=== PATIENT | female | born 1995 | race Caucasian/White ===

== ENCOUNTER 2018-10-14 15:58 | Observation (INO) ==
[2018-10-14 16:44] LABS: Hematocrit [HCT] 38.3 % (37.0-47.0); Hemoglobin [HGB] 13.4 g/dL (12.0-16.0); MEAN CORPUSCULAR VOLUME 91.2 FL (81-99); MEAN PLATELET VOLUME 11.1 FL (7.4-12.2); RED BLOOD COUNT 4.2 10^6/uL (4.20-5.40)
[2018-10-14] MEDS ORDERED: BETAMET ACET/BETAMET NA PH 6 MG/1 ML - 5 ML IM SCH (16:45)
[2018-10-14 16:55] LABS: BLOOD UREA NITROGEN 10 mg/dL (7-22); BUN/CREATININE RATIO 16.66 (6-20); SERUM ALBUMIN 3.3 g/dL (3.5-4.8); Uric Acid 6.1 mg/dl (2.5-6.2)
[2018-10-14] MEDS ORDERED: CALCIUM GLUCONATE 100 MG/1 ML - 10 ML IVP PRN (17:42)
[2018-10-14] MEDS ORDERED: Magnesium Sulfate 4gm (Premix) 4 GM/100 ML BAG IV ONE ×2 (17:42→18:00)
[2018-10-14] MEDS ORDERED: Magnesium Sulfate (Premix) 20 GM/500 ML BAG IV SCH (17:45)
[2018-10-14] MEDS ORDERED: Magnesium Sulfate 2gm (Premix) 2 GM/50 ML BAG IV ONE (18:00)
--- NOTE | 2018-10-14 18:22 | OB.PROGRES ---
Date of Service: 10/14/18 Time of Service: 18:07 Interval History: Pt is a 23 yo G1 at 29 weeks by 7 06/26 weeks u/s who recently moved to [place] from [facility] She was seen in the office initially on 10/11/18. At that time, she c/o some swelling to her hands, feet and face, but had been moving/getting settled into their new home. Her last blood pressure from [place] was 142/88. She had maybe a 1-2/10 headache, no vision changes, no RUQ pain. Otherwise, was feeling ok. Denied any contractions, cramping, vag bleeding or leakage or fluid/abnormal discharge. Baby had been moving well. Labs were c hecked on 10/11 and a 24 hour urine for protein collection was initiated the next morning. CBC on 10/11 showed WBC of 11,200, hgb 14.4, hcg 41.9, platelets 317,000. Creatinine was 0.6, glucose was 68, AST 21, ALT 28, LDH 410, uric acid 6.1. 24 hour urine for protein was 637 mg. Pt was asked to check some ambulatory blood pressures and call if they were over 140s/90s consistently. She called the office this afternoon around 1600 and had a 150/110 bp at home. Upon admission to [facility]D, she still stated that she had a 1-2/10 headache, no vision changes, no RUQ pain. Weight is up 2# from 3 days ago. Blood pressures were running 140-150/95-110. She notes some swelling to her face, hands and ankles. No clonus, DTR's are 2+. Labs show a hemoconcentration with hgb of 13.4, platelets are 262,000. CO2 is 17, glucose is 72, uric acid is 6.1, AST 20, ALT 14, LDH 375, albumin is 3.3. Random urine protein is 51, random urine creatinine is 43.1. Her urine dip showed 3+ protein. Sp gravity was 1.010. Objective - Cervical Exam Cervical Exam: no exam [place]: occasional contractions, palpating very mild. Heart Rate: baseline 130, no decels noted. Heart Rate Interpretation Category: Category I - Labs CBC and BMP: 10/14/18 16:28 07/26/19 16:28 - Vital Signs Last Taken Vital Signs: Vital Signs - Last Taken Temperature 97.9 F 10/14/18 16:11 Pulse Rate 80 10/14/18 17:20 Respiratory Rate 18 10/14/18 16:50 Blood Pressure 144/95 10/14/18 17:20 Pulse Ox 100 10/14/18 17:10 Assessment and Plan - Patient Problems (1) Pre-eclampsia Current Visit: Yes Status: Acute Code(s): O14.90 - Unspecified pre- eclampsia, unspecified trimester Qualifiers: Trimester: third trimester Qualified Code(s): O14.93 - Unspecified pre- eclampsia, third trimester - Assessment / Plan Additional Assessment/Plan Details: -spoke with Dr. Lucy Simeon at [facility] in [place], appreciate her assistance. Will transfer pt there to early gestation and severe range blood pressures. -gave betamethasone 12 mg at 1645. -magnesium sulfate bolus of 6 gm now and then 2 gm/hr maintenance. -noted from her u/s report from [place] that they had planned to do the rest of her anatomy scan at 30 weeks due to the unfavorable position of the baby at 20 weeks. Pt was just seen in the office 3 days ago, so that u/s has not been completed here. -from labs: B+, antibody negative, rubella immune. 1 hour glucose 69. No RPR. Declined HIV, gc/chlamydia.
== END 2018-10-14 20:02 | disposition short-term general hospital (02) ==
LOC: OBIP 15:58 → OBOP 15:58
PROVIDERS: ADMIT Family Medicine; ATTEND Family Medicine